=== PATIENT | male | born 1945 | race Caucasian/White ===

== ENCOUNTER 2022-07-06 08:20 | Day surgery (SDC) | payer MEDICARE ==
[~2022-07-06] VITALS: Ht 165.1 cm; Wt 78.8 kg
[2022-07-06] VITALS (7 sets, daily range): BP systolic 128–151; BP diastolic 56–96
[~2022-07-06 08:20] MED LIST: ACET-1025 PO; ALLO100T PO; ATOR20TA66 PO; HYDR-3965 PO; IRON PO; LISI1TAB51 PO
[2022-07-06] MEDS ORDERED: normal saline 1000ml 1,000 ML IV PRN (08:45)
[2022-07-06] MEDS ORDERED: FAMO20TA8 PO (08:59)
[2022-07-06] MEDS ORDERED: midazolam 1 mg/ML 2ml injection ONE (10:25)
[2022-07-06] MEDS ORDERED: heparin sodium, porcine/PF 100unit/ml 5ML syringe ONE (10:25)
[2022-07-06] MEDS ORDERED: fentaNYL/PF 50MCG/1 ML 2ML syringe ONE (10:25)
[2022-07-06] MEDS ORDERED: normal saline 1000ml 1,000 ML IV SCH (10:45)
== END 2022-07-06 12:30 | disposition home or self-care (01) ==
LOC: SSTAY O 08:20
PROVIDERS: ATTEND Radiology Diagnostic Radiology
DX: C18.9 Malignant neoplasm of colon, unspecified (principal); I10 Essential (primary) hypertension; Z90.49 Acquired absence of other specified parts of digestive tract; Z79.899 Other long term (current) drug therapy; Z91.010 Allergy to peanuts; Z91.018 Allergy to other foods
CPT/HCPCS: 36561; 76937; 77001; 99152; 99153; C1769; C1788; J1642; J2250; J3010; J7030; A4615